=== PATIENT | male | born 1990 | race Caucasian/White ===

== ENCOUNTER 2017-01-18 21:15 | Emergency (ER) | payer SELFPAY ==
[2017-01-18 21:22] VITALS: BP 123/73
--- NOTE | 2017-01-18 21:36 | EDM.PDOC ---
ED HPI GENERAL MEDICAL PROBLEM - General Chief Complaint: Lower Extremity Injury/Pain Stated Complaint: RIGHT ANKLE HURTS Time Seen by Provider: 01/18/17 21:20 Source of Information: Reports: Patient History Limitations: Reports: No Limitations - History of Present Illness INITIAL COMMENTS - FREE TEXT/NARRATIVE: Patient is a 26-year-old male presents ED complaining of right lateral and medial ankle pain with some mild swelling. Patient states few days ago he injured his right knee had been walking abnormally for a few days compensating for the pain. 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 He has no history of gout. Does not completely recall any specific event that may have caused the discomfort. Again he has been walking abnormally on it. Pain has drastically worsened throughout the course of the day. He has no prior injury to the affected ankle and/or history of surgery. Denies any complaints to the remainder of the right lower extremity. Knee pain has subsided. Patient has no redness, increased warmth, numbness or tingling, or open wounds. Right Ankle Pain Score (Numeric/FACES): 8 - Related Data Allergies Allergy/AdvReac Type Severity Reaction Status Date / Time No Known Allergies Allergy Verified 01/18/17 21:22 Past Medical History Genitourinary History: Reports: Renal Calculus Musculoskeletal History: Reports: Fracture - Past Surgical History Musculoskeletal Surgical History: Reports: Other (See Below) Other Musculoskeletal Surgeries/Procedures:: trauma surgery to hips Social & Family History - Tobacco Use Smoking Status *Q: Current Every Day Smoker Years of Tobacco use: 4 Packs/Tins Daily: 1 - Caffeine Use Caffeine Use: Reports: None - Recreational Drug Use Recreational Drug Use: No Review of Systems - Review of Systems Review Of Systems: ROS reveals no pertinent complaints other than HPI. ED EXAM, GENERAL - Physical Exam Exam: See Below Exam Limited By: No Limitations General Appearance: Alert, WD/WN, No Apparent Distress Ears: Hearing Grossly Normal Nose: Normal Inspection Throat/Mouth: Normal Voice, No Airway Compromise Neck: Normal Inspection, Supple Respiratory/Chest: No Respiratory Distress, No Accessory Muscle Use Cardiovascular: Normal Peripheral Pulses, Regular Rate, Rhythm Peripheral Pulses: 2+: Posterior Tibial (L) Extremities: Other (Mild swelling noted to the medial lateral aspect of the right ankle in comparison to the left. Pain with palpation along the distal aspect of the fibula and medial aspect of the tibia. Increasing pain with flexion-extension. Unable to invert or giana the ankle. No sensory deficits noted.) Neurological: Alert, Oriented, CN II-XII Intact, No Motor/Sensory Deficits Psychiatric: Normal Affect, Normal Mood Skin Exam: Warm, Dry, Intact, Normal Color, No Rash Course - Vital Signs Last Recorded V/S: Last Vital Signs Temp 98.4 F 01/18/17 21:17 Pulse 93 01/18/17 21:17 Resp 18 01/18/17 21:17 BP 123/73 01/18/17 21:17 Pulse Ox 97 01/18/17 21:17 - Orders/Labs/Meds Orders: Active Orders 24 hr Category Date Time Status Ankle Min 3V Rt [CR] Stat Exams 01/18/17 21:30 Taken - Re-Assessments/Exams Free Text/Narrative Re-Assessment/Exam: Ordered an x-ray of the right ankle which did not reveal any acute bony abnormalities. Final interpretation is pending. No additional testing is required. Patient has no history of gout nor does he have any examination findings suggesting patient is having a gouty attack. Nicolas wrap to be applied. Patient will be discharged home with crutches with detailed instructions. Departure - Departure Time of Disposition: 21:53 Disposition: Home, Self-Care 01 Condition: Good Clinical Impression: Acute right ankle pain, Swelling of ankle joint, right - Discharge Information Instructions: Crutch Use, [id number], Ankle Sprain, [id number] Referrals: PCP,None [Primary Care Provider] - Forms: ED Department Discharge, ED Return to Work/School Form Additional Instructions: As discussed x-rays did not reveal any acute bony abnormalities. Etiology of current complaint most likely related to an ankle sprain. Treatment is symptomatic care including: Nonweightbearing utilizing crutches to ambulate. Elevate when able to reduce any swelling and pain. Take Tylenol and ibuprofen in alternating fashion for discomfort. Refrain from any activities that cause worsening pain. Advance weight bearing as tolerated in one week. Follow-up with a orthopedic surgeon of your choice if symptoms have not drastically improved in 2 weeks. Return to the ED for any new or worsening symptoms. See a occupational med provider for modification of job duties if required. - My Orders Last 24 Hours: My Active Orders 01/18/17 21:30 Ankle Min 3V Rt [CR] Stat - Assessment/Plan Last 24 Hours: My Active Orders 01/18/17 21:30 Ankle Min 3V Rt [CR] Stat
--- NOTE | 2017-01-20 10:08 | CR ---
Right ankle: Four views of the right ankle were obtained. Comparison: No prior study. Ankle mortise is symmetric. No fracture, dislocation or other bony abnormality is identified. Mild soft tissue swelling. Impression: 1. No bony abnormality is identified on right ankle exam. 2. Mild soft tissue swelling. Diagnostic code #1
== END 2017-01-18 22:14 | disposition home or self-care (01) ==
LOC: JD.ED 21:15
DX: M25.471 Effusion, right ankle (principal); F17.210 Nicotine dependence, cigarettes, uncomplicated
CPT/HCPCS: 73610-26-RT; 73610-RT; 99283